=== PATIENT | female | born 1985 | race Asian ===

== ENCOUNTER 2020-02-25 | Outpatient (CLI) | payer OTHER | END 2020-02-25 17:42 | disposition critical access hospital (66) | DX: M54.9 Dorsalgia, unspecified (principal) | CPT/HCPCS: A0425; A0429 ==

== ENCOUNTER 2020-02-25 18:04 | Emergency (ER) | payer OTHER ==
[2020-02-25] MEDS ORDERED: CHERRY SYRUP 10 ML UDC PO ONE (18:29)
[2020-02-25] MEDS ORDERED: DEXAMETHASONE 10 MG/ML VIAL PO STA (18:29)
[2020-02-25] MEDS ORDERED: methocarbamoL 500 MG TABLET PO STA (18:29)
[2020-02-25] MEDS ORDERED: KETOROLAC 60 MG/2 ML VIAL IM STA (18:29)
--- NOTE | 2020-02-25 18:32 | ED Physician Documentation ---
PD HPI BACK PAIN - Stated complaint Stated Complaint: BACK PX - Chief complaint Chief Complaint: Back Pain - History obtained from History obtained from: Patient - History of Present Illness Timing - onset: How many weeks ago (2) Timing - duration: Weeks (2) Pain level max: 10 Pain level now: 1 Location: Lower, Right Quality: Pain, Spasm, Similar to prior episodes Associated symptoms: No: Fever, Weakness, Numbness, Incontinent of urine, Unable to urinate, Hematuria Improves with: Rest Worsened by: Movement Contributing factors: No: Lifting, Twisting, Trauma, Anticoagulated, Cancer, IVDA, Out of meds Recently seen: Not recently seen - Additional information Additional information: Patient is a 24-year-old female who presents to the emergency department stating that she has back pain today. She states it is been ongoing for the past several weeks. Today she sneezed in her kitchen and felt a spasm. She was unable to get up off the ground at that time. Worse with movement, better with rest. Does not recall any injury. Patient denies any possibility of . No urinary symptoms. No vaginal bleeding or discharge. Does not use IV drugs. No fevers No trauma. 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 : None HEENT: None Psych: None Musculoskeletal: None - Past Surgical History Past Surgical History: No - Present Medications Home Medications: Ambulatory Orders Medication Instructions Recorded Confirmed Meloxicam [Mobic] 7.5 mg PO BID PRN #20 tablet 02/25/20 methocarbamoL [Robaxin] 500 mg PO Q6H PRN #20 tablet 02/25/20 - Allergies Allergies/Adverse Reactions: Allergies Allergy/AdvReac Type Severity Reaction Status Date / Time No Known Drug Allergies Allergy Verified 02/25/20 18:15 - Social History Does the pt smoke?: No Smoking Status: Never smoker Does the pt drink ETOH?: No Does the pt have substance abuse?: No - Immunizations Immunizations are current?: Yes - POLST Patient has POLST: No PD ED PE NORMAL - Vitals Vital signs reviewed: Yes - General General: Alert and oriented X 3, No acute distress - HEENT HEENT: Moist mucous membranes - Neck Neck: Supple, no meningeal sign - Cardiac Cardiac: RRR - Respiratory Respiratory: No respiratory distress, Clear bilaterally - Abdomen Abdomen: Soft, Non tender, Non distended - Back Back: No spinal TTP (No midline tenderness to palpation. No step-off or deformity. Bilateral paraspinal low lumbar spasm.), Other (Normal bilateral lower extremity patellar and ankle jerk reflexes. Normal great toe extension bilaterally. no saddle anesthesia) - Derm Derm: Warm and dry - Extremities Extremities: No edema, No calf tenderness / cord - Neuro Neuro: Alert and oriented X 3 - Psych Psych: Normal mood, Normal affect Results - Vitals Vitals: Vital Signs - 24 hr 02/25/20 02/25/20 18:07 20:30 Temperature 36.4 C L 36.9 C Heart Rate 67 70 Respiratory 16 18 Rate Blood Pressure 114/68 105/67 O2 Saturation 100 100 Oxygen O2 Source Room air - Rads (name of study) Lumbar spine x-ray Radiology: Prelim report reviewed, EMP read contemporaneously, See rad report (No acute bony abnormality) PD MEDICAL DECISION MAKING - ED course Complexity details: reviewed results, re-evaluated patient, considered differential, d/w patient ED course: 34-year-old female with back pain and paraspinal spasm. Straightening of the lumbar lordosis on x-ray. Feels better after Toradol and Robaxin. We will place her on muscle relaxants for home. No cauda equina, epidural abscess. No saddle anesthesia. Ambulating well. Patient counseled regarding signs and symptoms for which I believe and urgent re-evaluation would be necessary. Patient with good understanding of and agreement to plan and is comfortable going home at this time This document was made in part using voice recognition software. While efforts are made to proofread this document, sound alike and grammatical errors may occur. Departure - Departure Disposition: Home, Self Care Clinical Impression: Back muscle spasm Condition: Good Instructions: ED Spasm Back No Trauma Follow-Up: your,doctor in 1 week [Other] Prescriptions: Meloxicam [Mobic] 7.5 mg PO BID PRN #20 tablet PRN Reason: Pain methocarbamoL [Robaxin] 500 mg PO Q6H PRN #20 tablet PRN Reason: muscle spasm Comments: You appear to be having back spasms tonight. Follow-up with your doctor for further care. We will place on anti-inflammatories and muscle relaxants for home. Return if you worsen. Do not drive or operate heavy machinery while taking Robaxin Discharge Date/Time: 02/25/20 20:30
--- NOTE | 2020-02-25 19:15 | XRAY Report ---
PROCEDURE: Lumbar Spine 2 View INDICATIONS: low back pain TECHNIQUE: 2 views of the lumbar spine were acquired. COMPARISON: None. FINDINGS: Bones: 5 [id number] vertebrae are present. There is normal bony alignment. No vertebral body compression fractures. No suspicious bony lesions. Soft tissues: Overlying bowel gas pattern is normal. No suspicious soft tissue calcifications. IMPRESSION: No acute osseous abnormalities in lumbar spine. Reviewed by: Kristian Davila MD on 02/25/2020 7:14 PM PST Approved by: Kristian Davila MD on 02/25/2020 7:14 PM PST Station ID: [id number]
[2020-02-25 20:36] VITALS: BP 105/67
== END 2020-02-25 20:30 | disposition home or self-care (01) ==
LOC: ED 18:04
DX: M62.830 Muscle spasm of back (principal)
CPT/HCPCS: 72100; 96372; 99281; 99283; A9270